=== PATIENT | female | born 1950 | race Caucasian/White ===

== ENCOUNTER 2023-09-03 12:31 | Outpatient (CLI) | payer MEDICARE, SELFPAY ==
--- NOTE | 2023-09-03 12:49 | XRR_ITS ---
PROCEDURE INFORMATION: Exam: XR Left Foot Exam date and time: 09/03/2023 1:15 PM Age: 73 years old Clinical indication: Pain; Toes; Left; Prior surgery; Surgery date: 6+ months; Surgery type: Bilateral bunionectomies; Lt foot tendon release; Additional info: Lt foot joint pain TECHNIQUE: Imaging protocol: Radiologic exam of the left foot. Views: 3 or more views. COMPARISON: No relevant prior studies available. FINDINGS: Bones/joints: There are 2 intact screws in the 1st metatarsal head. There is a single intact screw in the 2nd metatarsal head. 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 There is marked osteopenia throughout the 3rd toe. There is moderate fibular deviation of the 3rd proximal phalanx at the MTP joint. No acute fracture. Moderate osteoarthritis at the 1st MTP joint. Joint space narrowing and bone sclerosis at the tarsometatarsal joints diffusely. There is a plantar calcaneal enthesophyte of uncertain significance. Soft tissues: Unremarkable. XR/XR foot LT min 3V* [id number] IMPRESSION: 1. No fracture. No apparent surgical complications. 2. Marked osteopenia of the 3rd toe diffusely. Possible osteomyelitis or infarction.
--- NOTE | 2023-09-03 12:49 | XRR_ITS ---
PROCEDURE INFORMATION: Exam: XR Right Foot Exam date and time: 09/03/2023 1:15 PM Age: 73 years old Clinical indication: Pain; Right; Prior surgery; Surgery date: 6+ months; Surgery type: Bilateral bunionectomies; Lt foot tendon release; Additional info: RT joint foot pain TECHNIQUE: Imaging protocol: Radiologic exam of the right foot. Views: 3 or more views. COMPARISON: No relevant prior studies available. FINDINGS: Bones/joints: There is marked fibular deviation of the distal 1st phalanx at the interphalangeal joint. There is severe osteoarthritis at the 1st interphalangeal joint. There is moderate osteoarthritis at the 1st MTP joint. There is an intact screw in the distal 1st metatarsal. There is moderate to severe diffuse osteoarthritis in the suboptimally visualized interphalangeal joints. There is moderate fibular deviation of the 2nd through 4th proximal phalanges at the MTP joints. No acute fracture. No visible bone erosion. There is a plantar calcaneal enthesophyte of uncertain significance. Soft tissues: Visible soft tissues are unremarkable. XR/XR foot RT min 3V* [id number] IMPRESSION: 1. No acute findings. 2. Osteoarthritis as above.
== END 2023-09-03 12:32 | disposition home or self-care (01) ==
PROVIDERS: PCP Nurse Practitioner Family; Visit Provider Nurse Practitioner Family
DX: M79.672 Pain in left foot (principal); M19.071 Primary osteoarthritis, right ankle and foot; M79.671 Pain in right foot; M85.872 Other specified disorders of bone density and structure, left ankle and foot
CPT/HCPCS: 73630

== ENCOUNTER → 2023-11-16 13:08 | Outpatient (BNVA) | payer MEDICARE, SELFPAY | PROVIDERS: PCP Nurse Practitioner Family; Visit Provider Nurse Practitioner Family | DX: L82.0 Inflamed seborrheic keratosis (principal); L82.1 Other seborrheic keratosis; D22.5 Melanocytic nevi of trunk; I87.2 Venous insufficiency (chronic) (peripheral); L81.4 Other melanin hyperpigmentation; L57.8 Other skin changes due to chronic exposure to nonionizing radiation | CPT/HCPCS: 17110; 99203 ==

== ENCOUNTER → 2023-11-29 13:28 | Outpatient (BNVA) | payer MEDICARE, SELFPAY | PROVIDERS: PCP Nurse Practitioner Family; Visit Provider Nurse Practitioner Family | DX: L82.0 Inflamed seborrheic keratosis (principal); L82.1 Other seborrheic keratosis; D22.5 Melanocytic nevi of trunk; L81.4 Other melanin hyperpigmentation; L57.8 Other skin changes due to chronic exposure to nonionizing radiation | CPT/HCPCS: 99213 ==

== ENCOUNTER 2024-02-14 13:46 | Outpatient (CLI) | payer MEDICARE, SELFPAY ==
--- NOTE | 2024-02-14 13:58 | XRR_ITS ---
PROCEDURE INFORMATION: Exam: XR Chest Exam date and time: 02/14/2024 2:30 PM Age: 73 years old Clinical indication: Wheezing TECHNIQUE: Imaging protocol: Radiologic exam of the chest. Views: 2 views. COMPARISON: CR XR chest 2V* [id number] 09/16/2023 3:15 PM FINDINGS: Airway: Patent Lungs: Suggested COPD/emphysema. No consolidations. Pleural spaces: Unremarkable. No pleural effusion. No pneumothorax. Heart/Mediastinum: Normal heart size. Vasculature: Calcified aortic knob. Bones/joints: Moderate degenerative changes thoracic spine. No acute fracture or dislocation. Lower thoracic levocurvature. Other findings: Stable 8 mm chronic calcification overlying the right heart border. XR/XR chest 2V* [id number] IMPRESSION: 1. No acute chest pathology. 2. Suggested COPD/emphysema.
== END 2024-02-14 13:47 | disposition home or self-care (01) ==
PROVIDERS: PCP Nurse Practitioner Family; Visit Provider Nurse Practitioner Family
DX: R06.2 Wheezing (principal); R91.8 Other nonspecific abnormal finding of lung field; M43.8X4 Other specified deforming dorsopathies, thoracic region; M47.814 Spondylosis without myelopathy or radiculopathy, thoracic region
CPT/HCPCS: 71046

== ENCOUNTER 2024-07-21 07:31 | Outpatient (CLI) | payer MEDICARE, SELFPAY ==
--- NOTE | 2024-07-21 07:39 | US_ITS ---
WS: [id number] Complete ABDOMINAL ULTRASOUND HISTORY: HX OF HERNIA COMPARISON: None available. Liver: 15.0 cm in length. Normal size liver. Surface is slightly irregular. No mass. Mild coarse echo texture throughout the liver. Portal Vein: Normal hepatopetal flow with monophasic waveform. Gallbladder: Normally distended gallbladder with no stones or wall thickening. CBD: 0.3 cm Pancreas: Mild atrophy. Right kidney: 9.3 cm x 4.4 x 4.3 cm. Cortex:0.8 cm. Low normal size kidney with diffuse cortical thinning. There is a small parapelvic cyst or tiny extra renal pelvis. No obstruction. No solid mass. Left kidney: 10.1 cm x 4.4 cm x 4.8 cm. Cortex: 1.0 cm. Normal size kidney with mild cortical thinning. No mass or obstruction. Spleen: 11.2 cm. Normal size and echogenicity. Aorta and IVC: Mild atherosclerosis. Ectasia with calcified plaque. US/US abdomen complete* [id number] Impression: 1. Cirrhotic liver with no mass. 2. No cholelithiasis. 3. Small central RIGHT parapelvic cyst versus extrarenal pelvis. No solid mass or obstruction. 4. Very mild cortical thinning of each kidney but greatest on the RIGHT.
== END 2024-07-21 07:32 | disposition home or self-care (01) ==
LOC: RAD 07:32
PROVIDERS: PCP Nurse Practitioner Family; Visit Provider Family Medicine
DX: K74.60 Unspecified cirrhosis of liver (principal); Z87.898 Personal history of other specified conditions
CPT/HCPCS: 76700

== ENCOUNTER 2024-09-13 11:00 | Outpatient (CLI) | payer MEDICARE, SELFPAY ==
--- NOTE | 2024-09-13 11:17 | MM_ITS ---
WS: [id number] Bilateral screening 3D tomosynthesis digital mammogram, 09/13/2024 11:17 AM Clinical Data: SCREEN Comparison: None. Findings: No spiculated masses or clustered calcifications are seen. There are no secondary signs of carcinoma . There is asymmetric tissue in the upper outer aspect of the left breast but no masses are seen. MM/MM scr BI tomosynthesis [id number] Impression: Negative bilateral mammogram with no prior exam for review. Recommend annual screening mammograms. BIRADS: 1 - Negative. FOLLOW UP: 1 Year Follow-up DENSITY: There are scattered areas of fibroglandular density. The CAD [employer]er was used
== END 2024-09-13 11:05 | disposition home or self-care (01) ==
PROVIDERS: PCP Nurse Practitioner Family; Visit Provider Family Medicine
DX: Z12.31 Encounter for screening mammogram for malignant neoplasm of breast (principal); N64.89 Other specified disorders of breast; R92.323 Mammographic fibroglandular density, bilateral breasts
CPT/HCPCS: 77063; 77067